=== PATIENT | female | born 1970 | race Caucasian/White ===

== ENCOUNTER 2016-09-11 13:58 | Emergency (ER) | END 2016-09-11 19:17 | disposition home or self-care (01) | CPT/HCPCS: 71020; 87275; 87276; 94640; 99283; 99284; A9270; J7613 ==

== ENCOUNTER 2017-06-04 08:00 | Outpatient (CLI) | payer BC | END 2017-06-04 23:59 | disposition home or self-care (01) | LOC: LAB.R 08:00 | PROVIDERS: ATTEND Obstetrics & Gynecology | DX: R30.0 Dysuria (principal) | CPT/HCPCS: 87480; 87510; 87660 ==

== ENCOUNTER 2017-09-19 14:38 | Outpatient (CLI) | payer BC ==
--- NOTE | 2017-09-19 16:34 | Mammography Report ---
DATE OF SERVICE: 09/19/2017 DIGITAL DIAGNOSTIC BILATERAL MAMMOGRAM: 09/19/2017 CLINICAL INDICATION: Bilateral milky nipple discharge intermittently with activity or stimulation. TECHNIQUE: Bilateral CC and MLO views, bilateral true lateral views. This is the patient's baseline mammogram. FINDINGS: The breasts demonstrate scattered fibroglandular densities bilaterally. Punctate, typically benign calcifications are present. No suspicious masses, clustered microcalcifications, or regions of architectural distortion are identified. IMPRESSION: BENIGN FINDINGS. RECOMMENDATION: ROUTINE ANNUAL SCREENING UNLESS OTHERWISE CLINICALLY INDICATED. BIRADS CATEGORY 2-BENIGN FINDINGS. STANDARD QUALIFYING STATEMENTS: 1. This examination was reviewed with the aid of Computer-Aided Detection (CAD). 2. A negative or benign imaging report should not delay biopsy if clinically suspicious findings are present. Consider surgical consultation if warranted. More than 5% of cancers are not identified by imaging. 3. Dense breasts may obscure an underlying neoplasm. TD: 09/19/2017 17:33
== END 2017-09-19 14:39 | disposition home or self-care (01) ==
LOC: DI 14:38
PROVIDERS: ATTEND Obstetrics & Gynecology
DX: N64.52 Nipple discharge (principal)
CPT/HCPCS: 77066

== ENCOUNTER 2018-12-16 15:37 | Outpatient (CLI) | payer BC | END 2018-12-16 15:38 | disposition home or self-care (01) | LOC: LAB 15:37 | PROVIDERS: ATTEND Physician Assistant Medical | DX: Z01.84 Encounter for antibody response examination (principal) | CPT/HCPCS: 36415; 86735; 86762; 86765; 86787 ==

== ENCOUNTER 2019-06-25 16:01 | Outpatient (CLI) | payer BC ==
[2019-06-25 16:08] LABS: HGB - HEMOGLOBIN 12.9 g/dL (12.0-16.0); MEAN CORPUSCULAR HEMOGLOBIN 30.9 pg (27.0-31.0); MEAN CORPUSCULAR HGB CONC 32.8 g/dL (32.0-36.0); MEAN CORPUSCULAR VOLUME 94.2 fL (81.0-99.0); MEAN PLATELET VOLUME 9.3 fL (7.9-10.8); RED BLOOD COUNT 4.17 10^6/uL (4.20-5.40); RED CELL DISTRIBUTION WIDTH 12.5 % (12.0-15.0); WHITE BLOOD COUNT 6.5 x10^3/uL (4.8-10.8)
[2019-06-25 16:42] LABS: THYROID STIMULATING HORMONE 1.67 uIU/mL (0.34-5.60)
[2019-06-25 16:44] LABS: FREE T4 (FREE THYROXINE) 0.8 ng/dL (0.58-1.64)
== END 2019-06-25 16:02 | disposition home or self-care (01) ==
LOC: LAB 16:01
PROVIDERS: ATTEND Obstetrics & Gynecology
DX: N92.0 Excessive and frequent menstruation with regular cycle (principal)
CPT/HCPCS: 36415; 84439; 84443; 85027

== ENCOUNTER 2019-07-08 16:33 | Outpatient (CLI) | payer BC ==
--- NOTE | 2019-07-08 19:41 | Ultrasound Report ---
Reason: MENORRHAGIA Procedure Date: 07/08/2019 Accession Number: [id number] / [id number] Procedure: US - Pelvic w/Transvaginal CPT Code: FULL RESULT: EXAM: PELVIC ULTRASOUND EXAM DATE: 07/08/2019 05:20 PM. CLINICAL HISTORY: MENORRHAGIA. COMPARISON: None. TECHNIQUE: Realtime transabdominal pelvic scan performed to identify the uterus and adnexa and as an overview of other pelvic structures, followed by transvaginal scan to provide greater detail of the uterus and adnexa, with static image documentation. FINDINGS: Uterus: 9.3 x 4.8 x 5.8 cm, volume 136 cc. Anteverted position. Homogeneous, with hypervascularity especially at the myometrial endometrial junction. Masses: None. Endometrium: 28 mm. Diffusely thickened with increased vascularity. Cervix: Unremarkable. Right Ovary: 3.8 x 1.2 x 1.9 cm, volume 4.5 cc. Suboptimally visualized. 2.0 x 0.9 x 1.7 cm simple cyst. Otherwise unremarkable. Left Ovary: 2.7 x 1.2 x 1.1 cm, volume 1.9 cc. Normal echotexture and blood flow. Free Fluid: None. Other: None. IMPRESSION: Markedly thickened endometrium with increased vascularity; differential considerations include adenomyosis, endometrial hyperplasia, and endometritis. RADIA
== END 2019-07-08 16:34 | disposition home or self-care (01) ==
LOC: DI 16:33
PROVIDERS: ATTEND Obstetrics & Gynecology
DX: R93.89 Abnormal findings on diagnostic imaging of other specified body structures (principal)
CPT/HCPCS: 76830; 76856

== ENCOUNTER 2019-07-15 15:09 | Outpatient (CLI) | payer BC ==
[2019-07-15 15:47] LABS: ALBUMIN 3.8 g/dL (3.2-5.5); ALBUMIN/GLOBULIN RATIO 1.4 (1.0-2.2); BILIRUBIN,TOTAL 0.3 mg/dL (0.2-1.0); CALCIUM 8.9 mg/dL (8.5-10.3); CREATININE 0.7 mg/dL (0.4-1.0); HCG UR QUAL NEGATIVE; TOTAL PROTEIN 6.6 g/dL (6.7-8.2)
== END 2019-07-15 15:10 | disposition home or self-care (01) ==
LOC: LAB 15:09
PROVIDERS: ATTEND Obstetrics & Gynecology
DX: Z01.812 Encounter for preprocedural laboratory examination (principal); N92.0 Excessive and frequent menstruation with regular cycle
CPT/HCPCS: 36415; 80053; 81025; 86850; 86900; 86901

== ENCOUNTER 2019-07-16 07:46 | Day surgery (SDC) | payer BC ==
[2019-07-16] MEDS ORDERED: PROPOFOL 200 MG/20 ML VIAL IVP ONE (07:47)
[2019-07-16] MEDS ORDERED: MIDAZOLAM 2 MG/2 ML VIAL IVP ONE (07:47)
[2019-07-16] MEDS ORDERED: KETOROLAC 30 MG/ML VIAL IVP ONE (07:47)
[2019-07-16] MEDS ORDERED: DEXAMETHASONE 4 MG/ML VIAL IVP ONE (07:47)
[2019-07-16] MEDS ORDERED: LACTATED RINGERS 1,000 ML IV ONE (08:03)
[2019-07-16] MEDS ORDERED: CEFAZOLIN SODIUM IN 0.9 % NACL 2 GM/100 ML BAG IV ONE (08:10)
--- NOTE | 2019-07-16 08:21 | ANESTHESIA ---
Pre-Anesthesia VS, & Labs - Diagnosis Menorrhagia, thickened endometrium - Procedure Myosure hysteroscopy, D&C Vital Signs: Temp Pulse Resp BP Pulse Ox 36.2 C L 70 12 111/65 100 07/16/19 08:04 07/16/19 08:04 07/16/19 08:04 07/16/19 08:04 07/16/19 08:04 Height 5 ft 4 in - NPO >8 hours - Is Patient ?: No (- HCG 07/15) - Lab Results Lab results reviewed: Yes Home Medications and Allergies Home Medications: Ambulatory Orders Melatonin 5 mg PO QPM 07/15/19 Norethindrone AC-Eth Estradiol [Loestrin 21 1.5-30 Tablet] 1 each PO DAILY 07/15/19 Melatonin 5 mg PO QPM 07/15/19 Norethindrone AC-Eth Estradiol [Loestrin 21 1.5-30 Tablet] 1 each PO DAILY 07/15/19 Allergies/Adverse Reactions: Allergies Allergy/AdvReac Type Severity Reaction Status Date / Time amoxicillin Allergy Anaphylaxis Verified 07/15/19 15:03 Anes History & Medical History - Anesthetic History Anesthesia Complications: reports: Post-Operative Nausea/Vomiting (nausea) Family history of Anesthesia Complications: Denies Family history of Malignant Hyperthermia: Denies - Medical History Cardiovascular: reports: None Pulmonary: reports: Asthma Gastrointestinal: reports: None Urinary: reports: None Musculoskeletal: reports: Other Endocrine/Autoimmune: reports: None Skin: reports: None Smoking Status: Never smoker - Surgical History Eyes Ears Nose Throat (EENT): Tonsil/Adenoidectomy Other Past Surgical History: multiple L hand surgeries for AVM Exam General: Alert, Oriented x3, Cooperative Dental: WNL Mouth Openin Fingerbreadth Neck Mobility: Normal Mallampati classification: II Thyromental Distance: 4-6 cm Respiratory: Lungs clear, Normal breath sounds Cardiovascular: Regular rate Neurological: Normal speech Mental/Cognitive Status: Alert/Oriented X3, Normal for patient Cognitive Status: Within normal limits Plan Anesthesia Type: General Consent for Procedure(s) Verified and Reviewed: Yes Code Status: Attempt Resuscitation ASA classification: 2-Mild systemic disease Is this case an emergency?: No
[2019-07-16] MEDS ORDERED: SCOPOLAMINE PATCH TOP ONE (08:41)
[2019-07-16 08:53] LABS: BASOPHILS % (AUTO) 0.7 %; EOSINOPHILS # (AUTO) 0.1 10^3/uL (0.0-0.7); EOSINOPHILS % (AUTO) 1.6 %; HGB - HEMOGLOBIN 11.7 g/dL (12.0-16.0); LYMPHOCYTES # (AUTO) 1.4 10^3/uL (1.5-3.5); LYMPHOCYTES % (AUTO) 29.9 %; MEAN CORPUSCULAR HEMOGLOBIN 31.5 pg (27.0-31.0); MEAN CORPUSCULAR HGB CONC 33.6 g/dL (32.0-36.0); MEAN CORPUSCULAR VOLUME 93.8 fL (81.0-99.0); MEAN PLATELET VOLUME 10.4 fL (7.9-10.8); MONOCYTES # (AUTO) 0.2 10^3/uL (0.0-1.0); MONOCYTES % (AUTO) 5.3 %; NEUTROPHILS # (AUTO) 2.8 10^3/uL (1.5-6.6); NEUTROPHILS % (AUTO) 62.3 %; PLT - PLATELET COUNT 268 10^3/uL (130-450); RED BLOOD COUNT 3.71 10^6/uL (4.20-5.40); RED CELL DISTRIBUTION WIDTH 12.9 % (12.0-15.0); WHITE BLOOD COUNT 4.5 x10^3/uL (4.8-10.8)
[2019-07-16] MEDS ORDERED: BUPIVACAINE 0.5%-EPI 1:200000 PF 30 ML VIAL SUBQ ONE (09:12)
[2019-07-16] MEDS ORDERED: BUPIVACAINE 0.5%-EPI 1:200000 PF 30 ML VIAL ONE (09:20)
[2019-07-16] MEDS ORDERED: ONDANSETRON 4 MG/2 ML VIAL IVP PRN (09:59)
[2019-07-16] MEDS ORDERED: oxyCODONE 5 MG TABLET PO PRN (09:59)
[2019-07-16] MEDS ORDERED: LORazepam 2 MG/ML VIAL IVP PRN (09:59)
--- NOTE | 2019-07-16 10:02 | OPERATIVE REPORT ---
Operative Report - General Procedure Date: 07/16/19 Planned Procedure: Hysterscopy with D&C Pre-Op Diagnosis: Menorrhagia wiht thickened endometrium on US Procedure Performed: Hysterscopy with D&C Post Op Diagnosis: Menorrhagia without Polyps or fibriods - Procedure Note Primary Surgeon: Willam Contreras MD Anesthesia Provider: Pantera Velasquez CRNA Anesthesia Technique: General LMA Pathology: Endometrial currettings IV Fluids (mL): 600 Estimated Blood Loss (mL): 50 Urine Output (mL): 100 Complications: None - Other Other Information/Narrative: Hysterscopy deficet 90 ml
[2019-07-16] MEDS ORDERED: fentaNYL 100 MCG/2 ML VIAL ONE (10:33)
[2019-07-16] MEDS ORDERED: HYDROmorphone 0.5 MG/0.5 ML SYRINGE ONE (10:33)
[2019-07-16 11:09] VITALS: BP 112/76
--- NOTE | 2019-07-16 11:34 | OPERATIVE REPORT ---
DATE OF SERVICE: 07/16/2019 Physician: Willam Contreras MD PREOPERATIVE DIAGNOSIS: Menorrhagia with thickened endometrium on ultrasound. POSTOPERATIVE DIAGNOSIS: Menorrhagia with normal lining of the uterus. PROCEDURE PERFORMED: Hysteroscopy with D and C. SURGEON: Willam Contreras MD ANESTHESIA: General via LMA with SAL [place] MATERIALS SENT TO PATHOLOGY: Endometrial curettings. ESTIMATED BLOOD LOSS: 50 mL IV FLUIDS: 600 mL URINE OUTPUT: 100 mL. HYSTEROSCOPY DEFICIT: Is 90 mL normal saline. FINDINGS: The uterus sounded to roughly 8 cm. Upon entering the uterine cavity the endometrial cavity was free of any submucosal polyps or fibroids. At this time, the endometrial cavity was roughened in nature. The cornua both appeared to be normal. PROCEDURE IN DETAIL: Following adequate general anesthesia via LMA, patient was placed in the dorsal lithotomy position in Daniel stirrups. At this point, a pelvic examination under anesthesia revealed a uterus, which was anterior. Patient was then prepped and draped in the usual fashion. A timeout was performed for issues or concerns. She was noted to have a hemoglobin of 11.7. At this point, a speculum was placed in the vagina. The cervix was visualized, grasped with a single-tooth tenaculum anteriorly. The cervix was then dilated to 6 mm and video hysteroscope was inserted without difficulty. Both cornua were visualized as well as the entire endometrial cavity. There is no evidence of any polyps, fibroids at this time. The endometrial cavity was roughened in nature. At this point, the cervix was dilated up to 11 mm and the endometrial cavity was sharply curetted in all 4 quadrants. Care was taken to get a good tissue specimen. The hysteroscope was reinserted and there was no evidence of any injuries, polyps, fibroids and the endometrial cavity was noted to be clear. At this point, the procedure was terminated. The cervix was released from the single-tooth tenaculum. Patient tolerated the procedure well and was taken to recovery in stable condition. Sponge and needle counts were correct. TD: 07/16/2019 10:09 CATHY
== END 2019-07-16 07:47 | disposition home or self-care (01) ==
LOC: SDS 07:46
PROVIDERS: ATTEND Obstetrics & Gynecology
PROC: 0UDB7ZZ Extraction of Endometrium, Via Natural or Artificial Opening (ICD-10-PCS; principal; 2019-07-16 10:45)
DX: N92.0 Excessive and frequent menstruation with regular cycle (principal); Z72.0 Tobacco use; Z87.09 Personal history of other diseases of the respiratory system
CPT/HCPCS: 58558; 85025; J0690; J1170; J3490; J7120

== ENCOUNTER 2020-06-15 17:50 | Outpatient (CLI) | payer BC | END 2020-06-15 17:51 | disposition home or self-care (01) | LOC: COV 17:50 | PROVIDERS: ATTEND Family Medicine | DX: M79.10 Myalgia, unspecified site (principal); R53.83 Other fatigue; J02.9 Acute pharyngitis, unspecified; R09.81 Nasal congestion; Z20.828 Contact with and (suspected) exposure to other viral communicable diseases ==

== ENCOUNTER 2020-07-21 07:41 | Outpatient (CLI) | payer BC ==
--- NOTE | 2020-07-21 17:21 | XRAY Report ---
PROCEDURE: Ankle 3 View LT INDICATIONS: PAIN IN LEFT FOOT TECHNIQUE: 3 views of the ankle were acquired. COMPARISON: None FINDINGS: Bones: No fractures or dislocations. Ankle mortise is normally aligned. No suspicious bony lesions . Soft tissues: No tibiotalar joint effusion. Achilles tendon appears normal. IMPRESSION: No fracture. No osseous lesion. If there is continued clinical concern for pathology, then repeat arnulfo in film radiographs (7-10 days) or advanced imaging (CT, MR, bone scan) should be considered for furt her evaluation. Reviewed by: Sharonda Marie MD, PhD on 07/21/2020 5:19 PM PST Approved by: Sharonda Marie MD, PhD on 07/21/2020 5:19 PM PST Station ID: [id number]
--- NOTE | 2020-07-21 17:49 | XRAY Report ---
PROCEDURE: Foot 3 View LT INDICATIONS: PAIN IN LEFT FOOT TECHNIQUE: 3 views of the foot were acquired. COMPARISON: None FINDINGS: Bones: No fractures or dislocations. No suspicious bony lesions. Soft tissues: No tibiotalar joint effusion. Achilles tendon appears normal. IMPRESSION: Normal left foot Reviewed by: Bernardo Rea on 07/21/2020 5:47 PM LESLIE Approved by: Bernardo Rea on 07/21/2020 5:47 PM [facility] Station ID: [id number]
== END 2020-07-21 07:42 | disposition home or self-care (01) ==
LOC: DI 07:41
PROVIDERS: ATTEND Nurse Practitioner Psychiatric/Mental Health
DX: M25.572 Pain in left ankle and joints of left foot (principal); M79.672 Pain in left foot; M79.10 Myalgia, unspecified site

== ENCOUNTER 2021-09-09 14:36 | Outpatient (CLI) | payer BC ==
--- NOTE | 2021-09-09 15:38 | XRAY Report ---
PROCEDURE: Hand 3 View RT INDICATIONS: RT HAND PX TECHNIQUE: 3 views of the hand(s) acquired. COMPARISON: None. FINDINGS: Bones: No fractures or dislocations. No suspicious bony lesions. Degenerative changes are seen, wh ich are most prominent involving the radial aspect of the carpus. Soft tissues: No suspicious soft tissue calcifications. IMPRESSION: No acute plain film abnormality is seen. Reviewed by: Miller Mensah MD on 09/09/2021 2:36 PM [facility] Approved by: Miller Mensah MD on 09/09/2021 2:36 PM [place] Station ID: [id number]
== END 2021-09-09 14:37 | disposition home or self-care (01) ==
LOC: LAB 14:36
PROVIDERS: ATTEND Nurse Practitioner Psychiatric/Mental Health
DX: S69.91XA Unspecified injury of right wrist, hand and finger(s), initial encounter (principal); M79.641 Pain in right hand; M79.644 Pain in right finger(s)

== ENCOUNTER 2022-03-28 07:51 | Outpatient (CLI) | payer BC ==
--- NOTE | 2022-03-29 16:21 | Mammography Report ---
BILATERAL DIGITAL SCREENING MAMMOGRAM 3D/2D: 03/28/2022 CLINICAL: Routine screening. Comparison is made to exam dated: 09/19/2017 mammogram - [facility]. There are sca ttered fibroglandular elements in both breasts. There is a benign focal asymmetry in the right breast. No significant masses, calcifications, or other findings are seen in either breast. There has been no significant interval change. IMPRESSION: BENIGN There is no mammographic evidence of malignancy. A 1 year screening mammogram is recommended. Based on the Tyrer Cuzick model (a risk assessment model) the patients lifetime risk is 7.1% and her 10 year risk is 1.6%. According to the ACR, ACS, and NCCN guidelines, an annual breast MRI exam nick g with mammogram is recommended if the patients lifetime risk is 20% or greater. This exam was interpreted at Station ID: [id number]. NOTE: For mammograms, a report in lay terms will be sent to the patient. Approximately 15% of breast malignancies will not be visualized mammographically. In the management of a palpable breast mass, a negative mammogram must not discourage biopsy of a clinically suspicious lesion. Electronically Signed By: Camila [email or web address]:03/28/2022 10:34:52 ACR BI-RADS Category 2: Benign Finding(s) 3342F PARENCHYMAL PATTERN: (A) - The breast(s) demonstrate(s) scattered fibroglandular densities. BI-RADS CATEGORY: (2) - 2 RECOMMENDATION: (ANNUAL) - Recommend routine annual screening mammography. [id number] 1 year screening LATERALITY: (B)
== END 2022-03-28 07:52 | disposition home or self-care (01) ==
LOC: DI 07:51
PROVIDERS: ATTEND Student in an Organized Health Care Education/Training Program
DX: Z12.31 Encounter for screening mammogram for malignant neoplasm of breast (principal)

== ENCOUNTER 2022-09-22 08:00 | Outpatient (CLI) | payer BC ==
[2022-09-22 23:56] LABS: CHLAMYDIA TRACHOMATIS DNA NEGATIVE (NEGATIVE); NEISSERIA GONORRHOEAE DNA NEGATIVE (NEGATIVE); TRICHOMONAS VAGINALIS DNA NEGATIVE (NEGATIVE)
== END 2022-09-22 23:59 | disposition home or self-care (01) ==
LOC: LAB.WC 08:00
PROVIDERS: ATTEND Nurse Practitioner
DX: N89.8 Other specified noninflammatory disorders of vagina (principal)
CPT/HCPCS: 87491; 87591; 87661